=== PATIENT | female | born 1955 | race Caucasian/White ===

== ENCOUNTER 2016-03-24 10:03 | Day surgery (SDC) | payer OTHER ==
[2016-03-24] MEDS ORDERED: DIAZEPAM 5 MG TAB PO ONE (10:14)
[2016-03-24] MEDS ORDERED: diphenhydrAMINE 25 MG CAP PO ONE ×2 (10:14→10:47)
[2016-03-24] MEDS ORDERED: NS 1,000 ML IV ONE (10:14)
[2016-03-24] MEDS ORDERED: FAMOTIDINE 20 MG TAB PO ONE (10:14)
[2016-03-24] MEDS ORDERED: ASPIRIN EC 325 MG TAB PO ONE ×2 (10:14→10:47)
--- NOTE | 2016-03-24 10:34 | CPEKG ---
Heart Rate: 74 RR Interval: 811 P-R Interval: 160 QRSD Interval: 108 QT Interval: 396 QTC Interval: 440 P [place]: 22 QRS [place]: 60 T Wave [place]: 81 EKG Severity - ABNORMAL ECG - EKG Impression: SINUS RHYTHM EKG Impression: VENTRICULAR BIGEMINY EKG Impression: LOW VOLTAGE IN FRONTAL LEADS EKG Impression: NONSPECIFIC T ABNORMALITIES, ANTERIOR LEADS Electronically Signed By: Sami Todd 24-Mar-2016 13:22:11
[2016-03-24] MEDS ORDERED: DIAZEPAM 5 MG TAB ONE (10:47)
[2016-03-24] MEDS ORDERED: FAMOTIDINE 20 MG TAB ONE (10:47)
[2016-03-24 10:53] LABS: % IMMATURE GRANULYOCYTES 0.2 % (0.0-1.1); ABSOLUTE IMMATURE GRANULOCYTES 0.01 10^3/uL (0.00-0.10); ADD DIFF? NO; ADD MORPH? NO; ADD SCAN? NO; ATYPICAL LYMPHOCYTE FLAG 10 (0-99); FRAGMENT RBC FLAG 0 (0-99); HEMATOCRIT 43.7 % (38.0-47.0); HEMOGLOBIN 15.1 g/dL (12.6-16.3); LEFT SHIFT FLG 0 (0-99); LIPEMIA HEMOLYSIS FLAG 90 (0-99); MEAN CELL HEMOGLOBIN 33.3 pg (27.9-34.1); MEAN CELL HEMOGLOBIN CONCENTR. 34.6 g/dL (32.4-36.7); MEAN CELL VOLUME 96.5 fL (81.5-99.8); MEAN PLATELET VOLUME 9.4 fL (8.7-11.7); PLATELET CLUMPS FLAG 10 (0-99); PLATELET COUNT 263 10^3/uL (150-400); RED BLOOD CELL COUNT 4.53 10^6/uL (4.18-5.33); RED CELL DISTRIBUTION WIDTH 12.6 % (11.5-15.2)
[2016-03-24] MEDS ORDERED: LIDOCAINE 1% 30 ML SDV ONE (10:56)
[2016-03-24] MEDS ORDERED: fentaNYL 100 MCG/2 ML INJ ONE (10:56)
[2016-03-24] MEDS ORDERED: HEPARIN 10,000 UNIT/10 ML MDV ONE (10:57)
[2016-03-24] MEDS ORDERED: VERAPAMIL 5 MG/2 ML VIAL ONE (10:57)
[2016-03-24] MEDS ORDERED: MIDAZOLAM 2 MG/2 ML VIAL ONE ×2 (10:58→11:48)
--- NOTE | 2016-03-24 11:05 | SUROPNOTE ---
[facility] Operative Report - Surgery Date of Procedure: 03/24/2016 Indication: This patient is a 60 year old woman, with a history of coronary disease secondary to calcium score, family history of coronary disease (father and brother), Graves disease, two remote episodes of paroxysmal atrial fibrillation, and treated hyperlipidemia, presenting with new onset exercise intolerance. The patient presented to the emergency department 03/10/16 with a 24 hour episode of waxing and waning right-sided chest discomfort. She underwent extensive evaluation in the emergency department; troponin was negative, echocardiogram was normal, and myocardial perfusion imaging demonstrated no evidence of ischemia; however it should be noted that the patient experienced chest pain while performing in the ETT and demonstrated a short run of nonsustained VT. Since that time, the patient has noted increased PVC/palpitation burden with exercise. [place] Cardiovascular Class III anginal equivalent. Considering cardiac risk factors, class III anginal equivalent,and intermediate risk ETT, will proceed with diagnostic left heart catheterization. Procedures performed: 1. Left heart catheterization with left ventricular and selective coronary angiography. Description of procedure: Description, risks, benefits and alternatives were discussed in detail. Informed consent was obtained. The patient was brought to the catheterization laboratory where a timeout was performed. The right wrist was sterilely prepped and draped. 2% lidocaine utilized for local anesthetic. A 5/6-[place] slender hemostatic sheath placed right radial artery utilizing micropuncture technique. Intraarterial verapamil and intravenous heparin was administered. Diagnostic coronary angiography performed with 6-[place]ian, Zoila left-3.5 and Zoila right -4 catheter. All catheters were passed over a 0.035 guidewire. Pigtail catheter was then utilized for left heart catheterization and left ventricular angiography. Arterial sheath was removed and TR band was placed. Findings: 1. Hemodynamics: Aortic pressure 118/66, mean of 86, left ventricular pressure 109/7/19 end-diastolic. There was no pull back gradient across the aortic valve. 2. Left ventricle: The left ventricle appears normal in size. Left ventricle is normal shape. Segmental wall motion is normal with an ejection fraction of 60 %. There are no filling defects or significant mitral regurgitation. The aortic root and ascending aorta appears normal, there is no dissection or aneurysm formation. 3. Coronary angiography: Left main: The left main is a short bifurcating vessel , free of disease. 4. Left anterior descending: This is a large vessel continuing around the apex. There is a moderately large proximal diagonal branch. The LAD has a very mild area of mid calcified plaque with less than 10% stenosis. Otherwise, no significant disease. 5. Circumflex: The circumflex has a large bifurcating obtuse marginal branch and a moderate size posterolateral branch, with very mild 10% or less luminal irregularities. No significant stenoses. 6. Right coronary: Moderately large dominant vessel. There is a moderately large PDA and a moderately large multibranching posterolateral branch. Free of disease. Overall Impression: 1. Minimal-mild coronary artery disease. 2. Normal left ventricular systolic function with ejection fraction of 60%. 3. Normal resting hemodynamics. 4. Benign premature ventricular contractions. Plan: 1. Continue aggressive risk modification and statin therapy. 2. Provide the patient with reassurance regarding benign PVCs. If she continues to be symptomatic with PVCs, can consider beta-gonzalo or calcium channel gonzalo. Portions of this chart were entered by a scribe. I have reviewed this chart and agree with the documentation. Report scribed for Dr. Jitendra Hickman. Report scribed by Corrie Rooney.
[2016-03-24 11:09] LABS: INR 1.03 (0.83-1.16); PROTIME(PATIENT) 13.4 SEC (12.0-15.0)
[2016-03-24 11:16] LABS: ANION GAP 15 mEq/L (8-16); CALCIUM 10.1 mg/dL (8.5-10.4); CARBON DIOXIDE 23 mEq/l (22-31); CHLORIDE 104 mEq/L (97-110); CHOLESTEROL 231 mg/dL (140-220); CHOLESTEROL/HDL RATIO 2.38 RATIO (1.00-4.44); CREATININE 0.7 mg/dL (0.6-1.0); GLOMERULAR FILTRATION RATE > 60; GLUCOSE 100 mg/dL (70-100); HIGH DENSITY LIPOPROTEIN 97 mg/dL (40-85); LDL/HDL RATIO 1.21 RATIO (1.00-3.22); LOW DENSITY LIPOPROTEIN 117 mg/dL (80-100); NON-HIGH DENSITY LIPOPROTEIN 134 mg/dL (90-129); POTASSIUM 4.2 mEq/L (3.5-5.2); SODIUM 142 mEq/L (134-144); TRIGLYCERIDE 89 mg/dL (35-135); VERY LOW DENSITY LIPOPROTEINS 17 mg/dL (8-25)
[2016-03-24] MEDS ORDERED: HYDROCODONE/APAP 5/325 TAB PO PRN (12:19)
[2016-03-24] MEDS ORDERED: ONDANSETRON 4 MG/2 ML VIAL IVP PRN (12:19)
[2016-03-24] MEDS ORDERED: ATROPINE SULFATE 1 MG/10 ML SYR IVP PRN (12:19)
== END 2016-03-24 15:29 | disposition home or self-care (01) ==
LOC: FCATH 10:03
PROVIDERS: ATTEND Internal Medicine Interventional Cardiology
PROC: B2111ZZ Fluoroscopy of Multiple Coronary Arteries using Low Osmolar Contrast (ICD-10-PCS; principal; 2016-03-24)
PROC: 4A023N7 Measurement of Cardiac Sampling and Pressure, Left Heart, Percutaneous Approach (ICD-10-PCS; principal; 2016-03-24)
PROC: B2151ZZ Fluoroscopy of Left Heart using Low Osmolar Contrast (ICD-10-PCS; principal; 2016-03-24)
DX: I25.119 Atherosclerotic heart disease of native coronary artery with unspecified angina pectoris (principal); I48.0 Paroxysmal atrial fibrillation; E78.5 Hyperlipidemia, unspecified; E05.00 Thyrotoxicosis with diffuse goiter without thyrotoxic crisis or storm; Z82.49 Family history of ischemic heart disease and other diseases of the circulatory system
CPT/HCPCS: J1644; J2250; J3010

== ENCOUNTER → 2016-12-14 | Outpatient (CLI) | payer OTHER | LOC: FIMAGING 08:46 | PROVIDERS: ATTEND Internal Medicine | DX: Z12.31 Encounter for screening mammogram for malignant neoplasm of breast (principal) | CPT/HCPCS: G0202 ==

== ENCOUNTER → 2017-12-19 | Outpatient (CLI) | payer OTHER | LOC: FIMAGING 09:24 | PROVIDERS: ATTEND Internal Medicine | DX: Z12.31 Encounter for screening mammogram for malignant neoplasm of breast (principal) ==

== ENCOUNTER → 2018-06-30 | Outpatient (CLI) | payer OTHER | LOC: BMCIMAGING 10:35 → EDSTATUS 10:36 | PROVIDERS: ATTEND Internal Medicine | DX: R05 Cough (principal); R06.2 Wheezing ==